=== PATIENT | male | born 1995 | race Asian ===

== ENCOUNTER 2018-04-27 19:13 | Emergency (ER) | payer OTHER ==
[~2018-04-27] VITALS: Ht 185.4 cm; Wt 77.1 kg
[2018-04-27 20:32] VITALS: BP 128/88; TEMP 98.2
== END 2018-04-27 20:33 | disposition home or self-care (01) ==
LOC: ED 19:13
DX: L50.9 Urticaria, unspecified (principal); S60.561A Insect bite (nonvenomous) of right hand, initial encounter; S20.369A Insect bite (nonvenomous) of unspecified front wall of thorax, initial encounter; W57.XXXA Bitten or stung by nonvenomous insect and other nonvenomous arthropods, initial encounter
CPT/HCPCS: 96372; 99283; J2930

== ENCOUNTER 2019-11-23 00:57 | Emergency (ER) | payer OTHER ==
[~2019-11-23] VITALS: Ht 180.3 cm; Wt 104.3 kg
[2019-11-23 01:36] LABS: PLATELET COUNT 221 K/uL (142-355)
[2019-11-23 02:03] LABS: POTASSIUM 3.7 mmol/L (3.6-5.2); SODIUM 140 mmol/L (136-145)
[2019-11-23 03:15] VITALS: BP 134/83; TEMP 98.2
== END 2019-11-23 03:15 | disposition home or self-care (01) ==
LOC: ED 00:57
PROVIDERS: Emergency Medicine
DX: R07.89 Other chest pain (principal); F41.8 Other specified anxiety disorders
CPT/HCPCS: 36415; 80053; 82550; 82553; 84484; 85027; 93005; 94664; 96374; 99284; J2930